=== PATIENT | female | born 1985 | race Caucasian/White ===

== ENCOUNTER → 2022-01-26 | Outpatient (CLI) | payer OTHER ==
[~2022-01-26] MED LIST: ALBU90OI INH; ALBU90OI61 INH; ASPI325B PO; CHOL10002 PO; CRUTCH4 USE; HYDACE5 PO; HYDACE5325 PO; HYDR-86 PO; IBUP200 PO; KETO10 PO; LEVSOD137 PO; LEVSOD150 PO; MULVITMINE PO; SULTRIDS PO; Synthroid150 MCG PO; THYROID; VENL75ER PO; Zofran Odt4 MG SL
[2022-01-30 15:11] LABS: HPV 16 Negative (Negative); HPV 18 Negative (Negative); HPV OTHER HR TYPES Negative (Negative)
== END | disposition home or self-care (01) ==
LOC: LAB 11:15 → LAB SHORT 11:15
PROVIDERS: Obstetrics & Gynecology
DX: Z01.419 Encounter for gynecological examination (general) (routine) without abnormal findings (principal)
CPT/HCPCS: 87624; G0123